=== PATIENT | female | born 1940 | race Caucasian/White ===

== ENCOUNTER 2018-10-01 07:30 | Inpatient (IN) ==
[2018-09-22 17:26] LABS: Basophils # (Auto) 0 K/mcL (0.0-0.3); Basophils % (Auto) 0.5 % (0.0-2.0); Eosinophils # (Auto) 0.2 K/mcL (0.0-0.7); Eosinophils % (Auto) 3.2 % (0.0-7.0); Granulocytes % (Auto) 59.8 % (38.0-78.0); Lymphocytes # (Auto) 1.8 K/mcL (1.5-4.8); Lymphocytes % (Auto) 26.9 % (15.5-49.0); Mean Cell Volume 90.6 fL (80.0-100.0); Monocytes # (Auto) 0.6 K/mcL (0.1-0.9); Monocytes % (Auto) 9.6 % (1.0-12.0); Platelet Count 227 K/mcL (140-440); RBC 5.03 M/mcL (4.00-5.20); Red Cell Distribution Width 12.9 % (11.5-14.5)
[2018-09-22 17:34] LABS: Blood Urea Nitrogen 23 mg/dl (8-23)
[2018-09-22 19:05] LABS: Appearance,Urine CLEAR; Bilirubin,Urine NEG (NEG); Color,Urine YELLOW; Glucose,Urine (UA) NEGATIVE (NEG); Leukocyte Esterase,Urine NEG /uL (NEG); Protein,Urine NEG (NEG); Specific Gravity,Urine 1.021 (1.000-1.035); Urine Blood NEG mg/dL (<0.03); Urobilinogen,Urine NEG (NEG)
[~2018-10-01 07:30] MED LIST: 0.9 % SODIUM CHLORIDE 9 ML, KETOROLAC 30 MG, ROPIVACAINE HCL/PF 49.5 ML, EPINEPHrine 0.... IJ SCH; CELECOXIB 200 MG CAPSULE PO SCH; PREGABALIN 75 MG CAPSULE PO SCH; ceFAZolin 1 GM VIAL IV SCH; oxyCODONE 10 MG TAB.ER.12H PO SCH
[2018-10-01] MEDS ORDERED: ceFAZolin 1 GM VIAL IV SCH (10:45)
[2018-10-01] MEDS ORDERED: oxyCODONE 10 MG TAB.ER.12H PO SCH (10:45)
[2018-10-01] MEDS ORDERED: CELECOXIB 200 MG CAPSULE PO SCH (10:45)
[2018-10-01] MEDS ORDERED: PREGABALIN 75 MG CAPSULE PO SCH (10:45)
[2018-10-01] MEDS ORDERED: DEXAMETHASONE 10 MG/ML VIAL IV ONE (13:00)
[2018-10-01] MEDS ORDERED: PROPOFOL 200 MG/20 ML VIAL IV ONE (13:00)
[2018-10-01] MEDS ORDERED: ONDANSETRON 4 MG/2 ML VIAL IV ONE (13:00)
[2018-10-01] MEDS ORDERED: KETAMINE 100 MG/ML ML IV ONE (13:00)
[2018-10-01] MEDS ORDERED: PHENYLEPHRINE 10 MG/ML VIAL IV ONE (13:00)
[2018-10-01] MEDS ORDERED: TRANEXAMIC ACID 1,000 MG/10 ML VIAL IV ONE (13:00)
[2018-10-01] MEDS ORDERED: MIDAZOLAM 2 MG/2 ML VIAL IV ONE (13:00)
[2018-10-01] MEDS ORDERED: ROPIVACAINE HCL/PF 20 ML VIAL IJ ONE (13:00)
[2018-10-01] MEDS ORDERED: GLYCOPYRROLATE 0.2 MG/ML VIAL IV ONE (13:00)
[2018-10-01] MEDS ORDERED: LIDOCAINE HCL/PF 100 MG/5 ML SYRINGE IV ONE (13:00)
[2018-10-01] MEDS ORDERED: GENTAMICIN SULFATE 800 MG/20 ML VIAL IR ONE (13:27)
--- NOTE | 2018-10-01 14:39 | Brief Operative Note ---
Date of procedure: 10/01/18 Pre-op diagnosis: R knee severe patellofemoral OA Post-op diagnosis: same Procedure: Right robotic assisted total knee arthroplasty Grafts/Implants: Yes (Riky Triathlon 4 CR femur, 4 tibia, 9mm insert, 36 patella) Anesthesia: spinal, GLMA Findings: severe PF arthritis w maltracking Complications: none Surgeon: Omar Diaz Jet Dyeing Machine Tender: Mariusz Partida Estimated blood loss (cc): 30 Specimens Removed/Pathology: none sent Condition: stable Disposition: PACU
[2018-10-01] MEDS ORDERED: MAGNESIUM HYDROXIDE 30 ML ORAL.SUSP PO PRN (14:40)
[2018-10-01] MEDS ORDERED: TRANEXAMIC ACID 1,000 MG/10 ML VIAL IV SCH (14:40)
[2018-10-01] MEDS ORDERED: BISACODYL 10 MG SUPP.RECT PR PRN (14:40)
[2018-10-01] MEDS ORDERED: HYDROcodone/APAP 5/325MG TABLET PO PRN (14:40)
[2018-10-01] MEDS ORDERED: POLYETHYLENE GLYCOL 3350 17 GM PACKET PO PRN ×2 (14:40→14:45)
[2018-10-01] MEDS ORDERED: BENZOCAINE/MENTHOL 1 LOZENGE PO PRN (14:40)
[2018-10-01] MEDS ORDERED: ONDANSETRON 4 MG/2 ML VIAL IV PRN ×2 (14:40→14:47)
[2018-10-01] MEDS ORDERED: FLEETS ADULT ENEMA PR PRN (14:40)
[2018-10-01] MEDS ORDERED: ACETAMINOPHEN 500 MG TABLET PO PRN (14:45)
[2018-10-01] MEDS ORDERED: IPRATROPIUM/ALBUTEROL 3 ML AMPUL.NEB NEB PRN (14:47)
[2018-10-01] MEDS ORDERED: METHOCARBAMOL 1,000 MG/10 ML VIAL IV PRN (14:47)
[2018-10-01] MEDS ORDERED: fentaNYL 100 MCG/2 ML VIAL IV PRN (14:47)
[2018-10-01] MEDS ORDERED: LACTATED RINGERS 1,000 ML IV SCH (15:00)
[2018-10-01] MEDS: MEPERIDINE 25 MG/ML SYRINGE IV PRN ×2 (15:42→15:54)
--- NOTE | 2018-10-01 16:20 | XRay Report ---
HISTORY: Postop right knee replacement FINDINGS: There is a well positioned total knee prosthesis. No fracture is present and there are no abnormal soft tissue calcifications. IMPRESSION: Well-positioned right knee prosthesis Interpreted and Authenticated by: Champ Vieira 10/01/18
[2018-10-01] MEDS: 0.9 % SODIUM CHLORIDE 1,000 ML IV SCH ×2 (17:06→23:24)
[2018-10-01] MEDS: rOPINIRole 0.25 MG TABLET PO SCH ×2 (17:07→17:58)
[2018-10-01] MEDS: KETOROLAC 30 MG/ML VIAL IV SCH ×2 (17:08→23:10)
[2018-10-01] MEDS: DOCUSATE SODIUM 100 MG CAPSULE PO SCH (20:15)
[2018-10-01] MEDS: ASPIRIN 325 MG ENTERIC COATED TABLET PO SCH (20:15)
[2018-10-01] MEDS: 0.9 % SODIUM CHLORIDE 10 ML SYRINGE IV SCH (20:15)
[2018-10-01] MEDS: ceFAZolin 1 GM VIAL IV SCH (20:15)
[2018-10-01] MEDS ORDERED: rOPINIRole 1 MG TABLET PO SCH (21:00)
[2018-10-01] MEDS ORDERED: SENNOSIDES 1 TABLET PO SCH (21:00)
[2018-10-01] MEDS ORDERED: GABAPENTIN 300 MG CAPSULE PO SCH (21:00)
[2018-10-02] MEDS: rOPINIRole 0.25 MG TABLET PO SCH (03:08)
[2018-10-02] MEDS: ceFAZolin 1 GM VIAL IV SCH (03:25)
[2018-10-02] MEDS: 0.9 % SODIUM CHLORIDE 10 ML SYRINGE IV SCH ×2 (05:10→15:21)
[2018-10-02] MEDS: KETOROLAC 30 MG/ML VIAL IV SCH ×2 (05:10→11:41)
--- NOTE | 2018-10-02 07:26 | Discharge Summary ---
Providers - Providers Patient information: Note initiated : 10/02/18 at 7:23 am Service Date, if different from initiated Date: [] Patient: Elicia Oliver 78 y/o F admitted on 10/01/18 for Right Robotic Total Knee Arthroplasty. Chief Complaint: [] Discharge date: 10/02/18 Hospitalization Hospital course: Pt was admitted for a R Total knee arthroplasty. Pt underwent the procedure on the day of admission. Pt spent one night on the floor prior to discharge for IV pain control, IV pain meds, and PT. Pt will use ASA for DVT prophylaxis. Pt will f/u at [facility] in 2 weeks. Discharge diagnosis: R knee OA Exam - Exam Clean and dry: Yes Weight bearing status: as tolerated Ortho Discharge - TKA - Patient Instructions Diet: Regular Diet Activity: activity as tolerated Total Knee Protocol: For Total Knee: Start ROM LIZABETH with stationary bike or rocking chair. Work on gaining full extension of knee. Posterior dislocation precautions provided. Hip abductor strengthening and gait training instructions provided. Apply Cryocuff as instructed. Dressing Care: May shower in 2 days - Follow Up Plan Disposition: Home, Self-Care Prognosis: Good Rehab Potential: Good Overall status at discharge: patient is progressing back to baseline - Orders For Discharge Prescriptions: Aspirin [Ecotrin] 325 mg PO BID #30 tab.ec HYDROcodone/APAP 5/325MG [[place] 5-325Mg] 1 - 2 tab PO Q4HP PRN #90 tab PRN Reason: Pain Level 3-6 Pending Studies Resuscitation Status Full Code Diet Regular Diet Start SatOct 01 1442 Aspirin (Ecotrin) 325 mg PO BID [facility] Last Admin: 10/01/18 20:15 Dose: 325 mg Documented by: CARLOTART Docusate Sodium (Colace) 100 mg PO BID [facility] Last Admin: 10/01/18 20:15 Dose: 100 mg Documented by: CARLOTART Gabapentin (Neurontin) 300 mg PO HS [facility] Last Admin: 10/01/18 20:15 Dose: 300 mg Documented by: KERRIOSSERT Sodium Chloride (Sodium Chloride 0.9%) 1,000 mls @ 100 mls/hr IV .Q10H [facility] Last Infusion: 10/02/18 05:16 Dose: 0 mls/hr Documented by: Admin: 10/01/18 23:24 Dose: Not Given Documented by: Admin: 10/01/18 17:06 Dose: 100 mls/hr Documented by: [facility] Ketorolac Tromethamine (Toradol) 15 mg IV Q6 [facility] Stop: 10/03/18 12:01 Last Admin: 10/02/18 05:10 Dose: 15 mg Documented by: Admin: 10/01/18 23:10 Dose: 15 mg Documented by: Admin: 10/01/18 17:08 Dose: 15 mg Documented by: [facility] Ropinirole HCl (Requip) 0.5 mg PO BID@0300,1700 [facility] Last Admin: 10/02/18 03:08 Dose: 0.5 mg Documented by: Admin: 10/01/18 17:58 Dose: 0.5 mg Documented by: [facility] Admin: 10/01/18 17:07 Dose: Not Given Documented by: [email or web address] Ropinirole HCl (Requip) 1 mg PO [facility] Last Admin: 10/01/18 20:15 Dose: 1 mg Documented by: JOANNA Senna (Senokot) 2 tab PO [facility] Last Admin: 10/01/18 20:15 Dose: 2 tab Documented by: JOANNA Sodium Chloride (Saline Flush) 10 ml IV Q8 [facility] Last Admin: 10/02/18 05:10 Dose: 10 ml Documented by: Admin: 10/01/18 20:15 Dose: 10 ml Documented by: JOANNA Shift Summary 10/02/18 02:42 Shift Summary by Moira Silveira Addendum entered by Moira Silveira RHenri 10/02/18 03:36: Bladder scan 389ml. Voided 250ml. PVR 98ml. Adequate oral intake. Will SL prior to shift change. Original Note: Able to answer orientation questions appropriately although forgetful at times and needing reinforcement. VSS on 2L NC. Continue IVF overnight. Encouraging oral intake. OOB with SBA. Voided x1. with PVR 34ml. Will bladder scan again prior to end of shift. Compression wrap remain in place to RLE. Kryo cuff to R knee. Reporting improvement to numbness and tingling. Able to move toes without issue. Foot pumps on. Denies need for PRN pain medication. Continue scheduled toradol as ordered. Initialized on 10/02/18 02:42 - END OF NOTE
--- NOTE | 2018-10-02 08:11 | Operative Note ---
DATE OF OPERATION: 10/01/2018 PREOPERATIVE DIAGNOSIS: Right knee severe patellofemoral osteoarthritis. POSTOPERATIVE DIAGNOSIS: Right knee severe patellofemoral osteoarthritis. PROCEDURE PERFORMED: Right robotic-assisted total knee arthroplasty placing a 5.4 cruciate retaining Zearing Triathlon femoral component, size 4 tibial baseplate, a 9 mm X3 tibial insert with a 36 mm patellar button. SURGEON: Omar Diaz MD FENDER MECHANIC APPRENTICE: Pablo Partida PA-C. ANESTHESIA: Spinal plus general. DRAINS: None. SPECIMENS: Bone cuts, which were discarded. BLOOD LOSS: Less than 50 mL COMPLICATIONS: None. POSTOPERATIVE CONDITION: Stable. INDICATIONS FOR SURGERY: This is a 78-year-old female who has bilateral severe knee pain. Radiographs showed bilateral severe patellofemoral arthritis with maltracking. The right one was most symptomatic at the time and she wished to proceed with this first. FINDINGS AT SURGERY: She had near complete erosion through the lateral facet of the patella with maltracking. Post implantation showed satisfactory patellar tracking. PROCEDURE IN DETAIL: The patient had been seen in preop holding and informed consent had been obtained after discussion of risks and benefits of surgery. Risks including, but not limited to, bleeding, infection, possibly requiring need for prolonged IV antibiotics; injury to nerves, blood vessels other surrounding structures; anesthetic risks; incomplete or no resolution of symptoms; stiffness; swelling; pain; DVT and pulmonary embolus risks; and the possibility of needing revision surgery. She understood these risks and wished to proceed. Correct operative site was marked and the patient received spinal anesthesia. She was then taken to the operating room and LMA general given. The right lower extremity was carefully prepped and draped in normal sterile fashion. A timeout was performed verifying patient name, operative site and plan. Esmarch was used to exsanguinate the extremity and tourniquet was inflated. Ioban was used to cover all skin surfaces and a midline incision made with a scalpel through skin and subcutaneous tissue. IrriSept was irrigated and then a medial parapatellar arthrotomy made. Limited subperiosteal exposure was done of the anterior medial tibia. Anterior horns of the menisci were removed, ACL transected. Femoral and tibial checkpoints were placed and then two stab incisions were made over the tibia and two over the femur, bicortical pins were placed and the arrays were connected. Hip center of rotation was checked on the green probe to identify medial and lateral malleoli. We then did our double checks of the femoral and tibial checkpoints with the green probe. The blue probe was then used to do our mapping. We then used a rongeur to remove osteophytes. Flexion and extension gaps were checked. We ended up doing a full 60 degrees external rotation but after some manipulation, we got 17 mm gaps both flexion and extension on both sides. We then used the robotic assistance to do our bone cuts. The tibial trial was placed, externally rotating as much as bone coverage would allow and then this was pinned into place. Boss reamer and keel punch were used to prepare. We then removed the tibial trial and placed a keeled trial. T1 was elevated and a curved osteotome used to remove posterior osteophytes. Femoral trial was placed and peg holes were drilled. A 9 insert trial was snapped into place and the knee taken into extension. The patella was then measured and pre-resection she had a large erosion of the lateral facet and it was quite thin. We went ahead and made a shallow resection leaving the lateral defect which was contained. Our post-resection measured about 12 mm thick, so we did note that with a 36 we would get full coverage of the defect with a circumferential bony support, so we did a 36. Peg holes were drilled and then trial placed. Post-trial placement measured 23 mm thick. We checked our patellar tracking. There was still some tendency to tilt lateral, so a lateral retinacular release was done with Bovie. This then allowed the patella to track very well. We removed trial implants and definitive implants were opened. The joint was filled with IrriSept and checkpoints were removed. Antibiotic cement was mixed. We then irrigated with saline followed by a CO2 gun to clean and dry the cancellous bone surfaces, cemented the tibia and then removed the excess. We cemented the femur, removing the excess and then a 9 insert trial was placed and the knee was taken into extension and the patella was prepared and cemented. The joint was filled with IrriSept while cement hardened. We went ahead and removed and the arrays and injected pain cocktail in the pericapsular and subcutaneous tissues. Once cement fully hardened, we flexed the knee up and did a final inspection, removing any excess cement. The trial insert was removed and a definitive 9 insert opened. We irrigated with IrriSept and then impacted the 9 insert. We then pulse lavaged copiously with saline and the knee was taken into about 45 degrees of flexion. Interrupted #2 FiberWire [id number] were used to close around the superior quadrant of the patella, interrupted [id number] #1 Vicryl were used around the inferior quadrant, running #1 Vicryl used for patellar tendon and quad tendon. After a minute we pulse lavaged again and then 2-0 Monocryl for subcutaneous and jes for skin. Xeroform sterile dressing was applied. Tourniquet was released and patient was awakened, extubated, and transferred to recovery in stable condition. BJB:mono Job ID: [id number] Doc ID: [id number] Omar Diaz MD
[2018-10-02] MEDS ORDERED: CALCIUM W/VIT D3 500 MG TABLET PO SCH (09:00)
[2018-10-02] MEDS: ASPIRIN 325 MG ENTERIC COATED TABLET PO SCH (09:26)
[2018-10-02] MEDS: DOCUSATE SODIUM 100 MG CAPSULE PO SCH (09:27)
[2018-10-02] MEDS: 0.9 % SODIUM CHLORIDE 1,000 ML IV SCH (11:42)
== END 2018-10-02 14:03 | disposition home or self-care (01) | DRG 470 ==
LOC: MEDSUR 09:35
PROVIDERS: ADMIT Orthopaedic Surgery; ATTEND Orthopaedic Surgery